=== PATIENT | female | born 1970 | race Caucasian/White ===

== ENCOUNTER 2017-11-07 15:56 | Emergency (ER) | payer MEDICAID | END 2017-11-07 19:46 | disposition home or self-care (01) | LOC: FTE 15:56 | DX: S71.152A Open bite, left thigh, initial encounter (principal); W54.0XXA Bitten by dog, initial encounter; Y92.9 Unspecified place or not applicable; Z85.3 Personal history of malignant neoplasm of breast | CPT/HCPCS: 99283; Z7502 ==

== ENCOUNTER 2018-04-16 07:02 | Day surgery (SDC) | payer MEDICAID ==
[2018-04-16] MEDS: BUPIVACAINE 0.5%/EPI (SDV) 30 ML INJ (10:25)
[2018-04-16] MEDS ORDERED: KETOROLAC 30 MG INJ IV (11:00)
[2018-04-16] MEDS ORDERED: ONDANSETRON 4 MG INJ (16:19)
[2018-04-16] MEDS ORDERED: PROPOFOL 20 ML (16:19)
[2018-04-16] MEDS ORDERED: LIDOCAINE 2% (SDV) 5 ML INJ (16:19)
== END 2018-04-16 13:21 | disposition home or self-care (01) ==
LOC: SDS 07:02
DX: D18.01 Hemangioma of skin and subcutaneous tissue (principal); Z85.3 Personal history of malignant neoplasm of breast
CPT/HCPCS: 11420; 88305